=== PATIENT | male | born 1985 | race Hispanic/Latino ===

== ENCOUNTER 2016-09-25 19:55 | Emergency (ER) | payer OTHER ==
[2016-09-25 20:08] VITALS: TEMP 97.8; O2SAT 98
[2016-09-25] MEDS: IBUPROFEN 200 MG TAB PO ONE (20:18)
[2016-09-25] MEDS: CYCLOBENZAPRINE HCL 10 MG TAB PO ONE (20:18)
--- NOTE | 2016-09-25 20:30 | RAD ---
NAME: LO SAENZPROCEDURE: XR CHEST 2 VIEWSORDER DATE: 09/25/2016 8:11 PM CSTACCESSION NUMBER: [id number] CLINICAL HISTORY: chest pain INDICATION: Same as above COMPARISON: None TECHNIQUE: PA and and lateral chest radiographs were obtained. FINDINGS: The lung alba are well inflated. There are no discrete airspace infiltrates, pneumothoraces or pleural effusions. The pulmonary vascularity is normal The cardiomediastinal silhouette is unremarkable for patient's age and sex. IMPRESSION: There is no acute pleural-parenchymal process seen in the imaged lung alba. Place of interpretation: [facility]. Electronically signed by: Suresh Medrano MD 09/25/2016 8:29 PM LABOR CONTRACTOR
--- NOTE | 2016-09-25 20:46 | ED.PDOC ---
History of Present Illness - General Chief Complaint: Chest Pain/[place] Stated Complaint: pain to left chest wall Time Seen by Provider: 09/25/16 20:01 Source: patient Exam Limitations: no limitations - History of Present Illness Initial Comments: the patient is a 30-year-old male presenting to the emergency room secondary to left-sided chest wall pain after pulling up a post at work. He felt a pop and then had pain afterwards. No difficulty breathing. No difficulty moving his left upper extremity. He is tender to palpation over the medial aspect of the left side of his anterior chest wall. No crepitus is noted no deformity. No bruising. Timing/Duration: momentarily Severity: moderate Improving Factors: immobilization Worsening Factors: movement Associated Symptoms: denies symptoms Allergies/Adverse Reactions: Allergies NO KNOWN ALLERGY Allergy (Verified 05/03/16 17:22) Home Medications: Ambulatory Orders NK [NK] 09/25/16 Review of Systems - Review of Systems Constitutional: States: no symptoms reported EENTM: States: no symptoms reported Respiratory: States: no symptoms reported Cardiology: States: chest pain Gastrointestinal/Abdominal: States: no symptoms reported Genitourinary: States: no symptoms reported Musculoskeletal: States: no symptoms reported Skin: States: no symptoms reported Neurological: States: no symptoms reported All other Systems: No Change from Baseline Past Medical History (General) - Patient Medical History Hx Seizures: No Hx Stroke: No Hx Dementia: No Hx Asthma: No Hx of COPD: No Hx Cardiac Disorders: No Hx Congestive Heart Failure: No Hx Pacemaker: No Hx Hypertension: No Hx Thyroid Disease: No Hx Diabetes: No Hx Gastroesophageal Reflux: No Hx Renal Disease: No Hx Cancer: No Hx of HIV: No Hx Hepatitis C: No Hx MRSA: No Surgical History: no surgical history - Vaccination History Hx Tetanus, Diphtheria Vaccination: No Hx Influenza Vaccination: No Hx Pneumococcal Vaccination: No - Social History Hx Tobacco Use: No Hx Chewing Tobacco Use: No Hx Alcohol Use: No Hx Substance Use: No Hx Substance Use Treatment: No Hx Depression: No Hx Physical Abuse: No Hx Emotional Abuse: No Hx Suspected Abuse: No - Female History Patient : No Family Medical History - Family History Mother Family History: Unknown Physical Exam - Physical Exam General Appearance: Alert, Comfortable, No apparent distress Eye Exam: bilateral normal Ears, Nose, Throat: normal ENT inspection, normal pharynx Neck: non-tender, full range of motion, supple, normal inspection Respiratory: lungs clear, normal breath sounds, no respiratory distress, no accessory muscle use Cardiovascular/Chest: normal peripheral pulses, regular rate, rhythm, no edema, other - chest wall as per history of present illness Peripheral Pulses: radial,right: 2+, radial,left: 2+ Gastrointestinal/Abdominal: non tender, soft Back Exam: normal inspection, no CVA tenderness Extremity: normal range of motion, non-tender, normal inspection, no pedal edema , normal capillary refill Neurologic: no motor/sensory deficits, alert, normal mood/affect, oriented x 3 Skin Exam: normal color Comments: Vital Signs - 24 hr 09/25/16 20:04 Temperature 97.8 F Pulse Rate [ 88 Right] Respiratory 20 Rate Blood Pressure 142/89 [Right Arm] O2 Sat by Pulse 98 Oximetry Progress - Progress Progress: 09/25/16 20:44 the patient is a 30-year-old male presenting secondary to a strain of the left pectoralis muscle at its insertion. He can take ibuprofen 3 times daily for the next few days. He should expect to be sore for 2 months. He needs to keep well hydrated. He should return to the ER for any acute worsening. He was written for a short prescription of Fioricet for discomfort. 09/25/16 20:46 Departure - Departure Clinical Impression: Pectoralis muscle strain Qualifiers: Encounter type: initial encounter Qualifier Code: (S29.011A) Strain of muscle and tendon of front wall of thorax, initial encounter Disposition: Discharge to Home or Self Care Condition: Fair Departure Forms: ED Discharge - Pt. Copy, Patient Portal Self Enrollment Instructions: DI for Muscle Strain Diet: regular diet Activity: increase activity as tolerated Home Medications: Ambulatory Orders NK [NK] 09/25/16 Additional Instructions: the patient is a 30-year-old male presenting secondary to a strain of the left pectoralis muscle at its insertion. He can take ibuprofen 3 times daily for the next few days. He should expect to be sore for 2 months. He needs to keep well hydrated. He should return to the ER for any acute worsening. He was written for a short prescription of Fioricet for discomfort.
[2016-09-25 20:49] VITALS: BP 134/84
--- NOTE | 2016-10-21 23:49 | RAD ---
NAME: LO SAENZPROCEDURE: XR CHEST 2 VIEWSORDER DATE: 09/25/2016 8:11 PM CSTACCESSION NUMBER: [id number] CLINICAL HISTORY: chest pain INDICATION: Same as above COMPARISON: None TECHNIQUE: PA and and lateral chest radiographs were obtained. FINDINGS: The lung alba are well inflated. There are no discrete airspace infiltrates, pneumothoraces or pleural effusions. The pulmonary vascularity is normal The cardiomediastinal silhouette is unremarkable for patient's age and sex. IMPRESSION: There is no acute pleural-parenchymal process seen in the imaged lung alba. Place of interpretation: Teleradiology. Electronically signed by: Suresh Medrano MD 09/25/2016 8:29 PM FRONT DESK COORDINATOR
--- NOTE | 2016-10-22 04:31 | RAD ---
NAME: LO SAENZPROCEDURE: XR CHEST 2 VIEWSORDER DATE: 09/25/2016 8:11 PM CSTACCESSION NUMBER: [id number] CLINICAL HISTORY: chest pain INDICATION: Same as above COMPARISON: None TECHNIQUE: PA and and lateral chest radiographs were obtained. FINDINGS: The lung alba are well inflated. There are no discrete airspace infiltrates, pneumothoraces or pleural effusions. The pulmonary vascularity is normal The cardiomediastinal silhouette is unremarkable for patient's age and sex. IMPRESSION: There is no acute pleural-parenchymal process seen in the imaged lung alba. Place of interpretation: Teleradiology. Electronically signed by: Suresh Medrano MD 09/25/2016 8:29 PM CURATOR [employer]
== END 2016-09-25 20:49 | disposition home or self-care (01) ==
LOC: ER 19:55
DX: S29.011A Strain of muscle and tendon of front wall of thorax, initial encounter (principal); X50.0XXA Overexertion from strenuous movement or load, initial encounter; Y99.0 Civilian activity done for income or pay

== ENCOUNTER 2017-02-12 17:13 | Emergency (ER) | payer OTHER ==
--- NOTE | 2017-02-12 17:59 | ED.PDOC ---
History of Present Illness - General Chief Complaint: GI Problem Stated Complaint: ABDOMINAL PAINS X 3 DAYS, BILATERAL EAR PAIN Time Seen by Provider: 02/12/17 17:51 Source: patient Exam Limitations: no limitations - History of Present Illness Initial Comments: Patient presents with ear pain and sore throat for three days. No nasal drainage. Does not know if he has had a fever. No cough. Today he started having intermittent supraumbilical pain. Non-radiating. Fluttering in nature. No N/V/D. No other sx. Timing/Duration: other - 3 days Severity: mild Improving Factors: nothing Worsening Factors: nothing Associated Symptoms: denies symptoms Allergies/Adverse Reactions: Allergies NO KNOWN ALLERGY Allergy (Verified 02/12/17 17:19) Home Medications: Ambulatory Orders NK [NK] 09/25/16 Review of Systems - Review of Systems Constitutional: States: no symptoms reported EENTM: States: see HPI Respiratory: States: no symptoms reported Cardiology: States: no symptoms reported Gastrointestinal/Abdominal: States: see HPI Genitourinary: States: no symptoms reported Musculoskeletal: States: no symptoms reported Skin: States: no symptoms reported Neurological: States: no symptoms reported Endocrine: States: no symptoms reported Hematologic/Lymphatic: States: no symptoms reported Past Medical History (General) - Patient Medical History Hx Seizures: No Hx Stroke: No Hx Dementia: No Hx Asthma: No Hx of COPD: No Hx Cardiac Disorders: No Hx Congestive Heart Failure: No Hx Pacemaker: No Hx Hypertension: No Hx Thyroid Disease: No Hx Diabetes: No Hx Gastroesophageal Reflux: No Hx Renal Disease: No Hx Cancer: No Hx of HIV: No Hx Hepatitis C: No Hx MRSA: No Surgical History: no surgical history - Vaccination History Hx Tetanus, Diphtheria Vaccination: Yes Hx Influenza Vaccination: No Hx Pneumococcal Vaccination: No Immunizations Up to Date: No - Social History Hx Tobacco Use: No Hx Chewing Tobacco Use: No Hx Alcohol Use: No Hx Substance Use: No Hx Substance Use Treatment: No Hx Depression: No Feels Threatened In Home Enviroment: No Feels Threatened In a Relationship: No Hx Physical Abuse: No Hx Emotional Abuse: No Hx Suspected Abuse: No - Female History Patient is a Female of Child Bearing Age (10 -59 yrs old): No Patient : No Family Medical History - Family History Mother Family History: Unknown Living Status: Hx Family Asthma: No Physical Exam - Physical Exam General Appearance: Alert Eye Exam: bilateral normal Ears, Nose, Throat: normal ENT inspection Neck: non-tender, full range of motion, supple Respiratory: lungs clear Cardiovascular/Chest: normal peripheral pulses, regular rate, rhythm Gastrointestinal/Abdominal: normal bowel sounds, non tender, soft Progress - Progress Progress: 02/12/17 19:28 Rapid strep negative. GI cocktail x one relieved the sx. Departure - Departure Clinical Impression: Gastritis Disposition: Discharge to Home or Self Care Condition: Good Departure Forms: ED Discharge - Pt. Copy, Patient Portal Self Enrollment Diet: other - low fat , low sugar diet. Activity: increase activity as tolerated Home Medications: Ambulatory Orders NK [NK] 09/25/16 Additional Instructions: Take Prilosec or omeprazole once in the morning before eating anything and once in the evening before your last meal of the day. Do this for at least two weeks. Change to a low fat, low sugar diet. Follow up with your regular doctor if symptoms return.
[2017-02-12] MEDS ORDERED: LIDOCAINE VIS-MYLANTA 30 ML UD PO ONE (19:00)
[2017-02-12 19:47] VITALS: BP 128/77
[2017-02-12 20:30] VITALS: TEMP 98.6; O2SAT 98
== END 2017-02-12 20:28 | disposition home or self-care (01) ==
LOC: ER 17:13
DX: K29.70 Gastritis, unspecified, without bleeding (principal); H66.93 Otitis media, unspecified, bilateral; J02.9 Acute pharyngitis, unspecified

== ENCOUNTER 2017-04-25 21:33 | Emergency (ER) | payer OTHER ==
[2017-04-25] MEDS ORDERED: ASPIRIN TABLET 325 MG TAB PO ONE (21:53)
[2017-04-25] MEDS ORDERED: HYDROcodone 7.5MG/APAP 325MG 1 EA TAB PO ONE (21:54)
[2017-04-25] MEDS ORDERED: diazePAM 2 MG TAB PO ONE (21:54)
[2017-04-25] MEDS ORDERED: SODIUM CHLORIDE 0.9% 1000ML 1,000 ML IVS ONE (21:54)
--- NOTE | 2017-04-25 22:12 | RAD ---
PROCEDURE: Chest,2 Views CLINICAL HISTORY: left chest shoulder jaw pain 2 weeks INDICATION: Same as above COMPARISON: 09/25/2016 TECHNIQUE: PA and and lateral chest radiographs were obtained. FINDINGS: The lung alba are well inflated. There are no discrete airspace infiltrates, pneumothoraces or pleural effusions. The pulmonary vascularity is normal The cardiomediastinal silhouette is stable. IMPRESSION: There is no acute pleural-parenchymal process seen in the imaged lung alba. Place of interpretation: Teleradiology. Electronically signed by: Suresh Medrano MD 04/25/2017 10:10 PM CDT Workstation: [id number]
[2017-04-25] MEDS ORDERED: POTASSIUM CHLORIDE ELIXIR 20 MEQ/15 ML UD PO ONE (22:40)
--- NOTE | 2017-04-25 23:05 | ED.PDOC ---
History of Present Illness - General Chief Complaint: Chest Pain/[place] Stated Complaint: Chest pain Time Seen by Provider: 04/25/17 21:40 Source: patient Exam Limitations: no limitations - History of Present Illness Initial Comments: the patient is a 31-year-old male presenting to the emergency room secondary to complaints of left upper chest shoulder neck and jaw pain intermittent and progressive over the last 2 weeks. It does not appear to be associated with significant exertion. There is no shortness of breath. There are no palpitations. He does have a positive family history for coronary artery disease. The pain is worse with palpation over those areas. He does have a known history of some compression fractures and degenerative disc disease. He does occasionally get tingling in his left arm. He does drive heavy equipment for a living. Severity: moderate Improving Factors: nothing Worsening Factors: movement Associated Symptoms: chest pain Allergies/Adverse Reactions: Allergies NO KNOWN ALLERGY Allergy (Verified 02/12/17 17:19) Home Medications: Ambulatory Orders Nwnsixhppetmz-Uvai-Ffrcopbtpc [Fioricet] 1 ea PO Q8H PRN #21 tab 04/25/17 Cyclobenzaprine HCl [Flexeril] 10 mg PO Q8HR PRN #30 tab 04/25/17 predniSONE [Prednisone] 20 mg PO DAILY #5 tab 04/25/17 Review of Systems - Review of Systems Constitutional: States: no symptoms reported EENTM: States: no symptoms reported Respiratory: States: no symptoms reported Cardiology: States: see HPI Gastrointestinal/Abdominal: States: no symptoms reported Genitourinary: States: no symptoms reported Musculoskeletal: States: no symptoms reported Skin: States: no symptoms reported Neurological: States: no symptoms reported Endocrine: States: no symptoms reported All other Systems: No Change from Baseline Past Medical History (General) - Patient Medical History Hx Seizures: No Hx Stroke: No Hx Dementia: No Hx Asthma: No Hx of COPD: No Hx Cardiac Disorders: No Hx Congestive Heart Failure: No Hx Pacemaker: No Hx Hypertension: No Hx Thyroid Disease: No Hx Diabetes: No Hx Gastroesophageal Reflux: No Hx Renal Disease: No Hx Cancer: No Hx of HIV: No Hx Hepatitis C: No Hx MRSA: No Surgical History: no surgical history - Vaccination History Hx Tetanus, Diphtheria Vaccination: Yes Hx Influenza Vaccination: No Hx Pneumococcal Vaccination: No Immunizations Up to Date: Yes - Social History Hx Tobacco Use: No Hx Chewing Tobacco Use: No Hx Alcohol Use: No Hx Substance Use: No Hx Substance Use Treatment: No Hx Depression: No Hx Physical Abuse: No Hx Emotional Abuse: No Hx Suspected Abuse: No - Female History Patient : No Family Medical History - Family History Mother Family History: Unknown Living Status: Hx Family Asthma: No Physical Exam - Physical Exam General Appearance: Alert, Comfortable, No apparent distress Eye Exam: bilateral normal Ears, Nose, Throat: hearing grossly normal, normal ENT inspection, normal pharynx Neck: non-tender, full range of motion, supple Respiratory: lungs clear, normal breath sounds, no respiratory distress, no accessory muscle use, other - see history of present illness Cardiovascular/Chest: normal peripheral pulses, regular rate, rhythm, no edema Peripheral Pulses: radial,right: 2+, radial,left: 2+, dorsalis pedis,right: 2+, dorsalis pedis,left: 2+ Gastrointestinal/Abdominal: non tender, soft Back Exam: normal inspection Extremity: normal range of motion, normal inspection, no pedal edema, normal capillary refill, other - left shoulder and left posterior neck uncomfortable to palpation. There is some obvious muscle spasm. Neurologic: cutter machine II-XII nml as tested, alert, normal mood/affect, oriented x 3 Skin Exam: normal color Comments: Vital Signs - 24 hr 04/25/17 21:43 Temperature 98.8 F Pulse Rate [ 85 Right radial] Respiratory 18 Rate Blood Pressure 142/89 [Left Arm] O2 Sat by Pulse 95 Oximetry Progress - Progress Progress: 04/25/17 23:06 the patient is a 31-year-old male presenting with left chest, shoulder , neck and jaw discomfort worsening over the last 2 weeks. Lab work is reassuring as is the EKG and chest x-ray. Symptoms are actually more consistent with muscle spasms likely induced from nerve impingement from his cervical spine. The patient is going to be placed on prednisone 20 mg daily for 5 days and Flexeril can be used as a muscle relaxer as well. Heat pad may prove beneficial. Fioricet additionally can be used for pain relief. He does need to follow up with his primary care doctor early next week. A nerve conduction study of the area may prove beneficial. an exercise tolerance test may also help risk stratify this patient. ER warnings were given for any acute worsening. - Results/Orders Results/Orders: chest x-ray appears benign. EKG shows a normal sinus rhythm at 77 bpm. normal axis. No acute ST segment changes concerning for ischemia. Normal QT interval. Laboratory Tests 04/25/17 04/25/17 04/25/17 22:03 22:03 22:03 WBC 8.1 RBC 4.92 Hgb 13.4 L Hct 40.4 L MCV 82.1 MCH 27.2 MCHC 33.3 RDW 13.6 Plt Count 218 MPV 7.8 Absolute Neuts (auto) 4.20 Absolute Lymphs (auto) 2.80 Absolute Monos (auto) 0.50 Absolute Eos (auto) 0.50 H Absolute Basos (auto) 0.00 Neutrophils % 52.5 Lymphocytes % 34.9 Monocytes % 6.3 Eosinophils % 6.0 H Basophils % 0.3 PT 14.0 H INR 1.240 PTT (SP) 34.4 Sodium 138 Potassium 3.5 L Chloride 103 Carbon Dioxide 27 Anion Gap 11.5 L BUN 12 Creatinine 0.79 BUN/Creatinine Ratio 15.2 Random Glucose 105 Serum Osmolality 275.8 Calcium 8.7 Magnesium 1.8 Total Bilirubin 0.6 AST 17 ALT 16 Alkaline Phosphatase 50 Creatine Kinase 100 CK-MB (CK-2) 1.2 CK-MB (CK-2) % Not Reportable Troponin I < 0.02 B-Natriuretic Peptide < 5.0 Serum Total Protein 7.2 Albumin 4.1 Globulin 3.1 Albumin/Globulin Ratio 1.3 TSH 2.85 Departure - Departure Clinical Impression: Cervical radiculopathy Disposition: Discharge to Home or Self Care Condition: Fair Departure Forms: ED Discharge - Pt. Copy, Patient Portal Self Enrollment Instructions: DI for Cervical Radiculopathy Diet: regular diet Activity: increase activity as tolerated Prescriptions: Cyclobenzaprine HCl [Flexeril] 10 mg PO Q8HR PRN #30 tab PRN Reason: Muscle Spasms Yrvxsiigxoshy-Yrjt-Buisukvasf [Fioricet] 1 ea PO Q8H PRN #21 tab PRN Reason: Pain predniSONE [Prednisone] 20 mg PO DAILY #5 tab Home Medications: Ambulatory Orders Prhfcwnkvxauu-Spod-Sbfuaiihfn [Fioricet] 1 ea PO Q8H PRN #21 tab 04/25/17 Cyclobenzaprine HCl [Flexeril] 10 mg PO Q8HR PRN #30 tab 04/25/17 predniSONE [Prednisone] 20 mg PO DAILY #5 tab 04/25/17 Additional Instructions: the patient is a 31-year-old male presenting with left chest, shoulder , neck and jaw discomfort worsening over the last 2 weeks. Lab work is reassuring as is the EKG and chest x-ray. Symptoms are actually more consistent with muscle spasms likely induced from nerve impingement from his cervical spine. The patient is going to be placed on prednisone 20 mg daily for 5 days and Flexeril can be used as a muscle relaxer as well. Heat pad may prove beneficial. Fioricet additionally can be used for pain relief. He does need to follow up with his primary care doctor early next week. A nerve conduction study of the area may prove beneficial. an exercise tolerance test may also help risk stratify this patient. ER warnings were given for any acute worsening.
[2017-04-25 23:25] VITALS: BP 123/86; TEMP 98.6; O2SAT 96
== END 2017-04-25 23:25 | disposition home or self-care (01) ==
LOC: ER 21:33
DX: M54.12 Radiculopathy, cervical region (principal)
CPT/HCPCS: 36415; 71020; 80053; 82550; 82553; 83735; 83880; 84443; 84484; 85025; 85610; 85730; 93005; J7030

== ENCOUNTER → 2020-05-27 | Outpatient (CLI) | payer OTHER | LOC: YCFC.O 09:49 | PROVIDERS: ATTEND Nurse Practitioner | DX: Z20.828 Contact with and (suspected) exposure to other viral communicable diseases (principal) ==